=== PATIENT | female | born 1975 | race Hispanic/Latino ===

== ENCOUNTER → 2022-09-09 | Outpatient (CLI) | payer OTHER, MEDICARE ==
[~2022-09-09] MED LIST: IOHEXOL 350 MG/ML 100ML INFUS..BTL IV ONE
== END | disposition home or self-care (01) ==
LOC: CANPRECLI → RAH 10:14
PROVIDERS: ATTEND Internal Medicine
DX: R07.9 Chest pain, unspecified (principal)
CPT/HCPCS: 75574; Q9967